=== PATIENT | male | born 1970 | race Caucasian/White ===

== ENCOUNTER 2023-05-23 17:01 | Emergency (ER) | payer OTHER, SELFPAY ==
[2023-05-23 17:10] VITALS: BP 161/110
[2023-05-23 18:54] LABS: % Basophils 0.3 % (0-2); % Eosinophils 0.2 % (0-6); % Immature Granulocytes 0.3 % (0-0.5); % Lymphocytes 9.6 % (20.5-51.1); % Monocytes 6.4 % (1.7-9.3); % Neutrophils 83.2 % (42.2-75.2); Absolute Lymphocytes 0.9 10^3/uL (1.2-3.4); Absolute Monocytes 0.6 10^3/uL (0.1-0.6); Absolute Neutrophils 7.7 10^3/uL (1.4-6.5); Hematocrit 46.5 % (39.0-52.0); Hemoglobin 15.9 g/dL (13.0-18.0); Mean Corp Hgb Conc. 34.2 g/dL (33.0-37.0); Mean Corpuscular Volume 84.9 fL (80.0-94.0); Mean Platelet Volume 10.1 fL (7.4-10.4); Nucleated Red Blood Cells % 0 % (-); Platelet Count 213 10^3/uL (130-400); Red Blood Cell Count 5.48 10^6/uL (4.70-6.10); Red Cell Dist. Width 13.6 % (11.5-14.5); White Blood Cell Count 9.3 10^3/uL (4.8-10.8)
--- NOTE | 2023-05-23 18:54 | ED.GENMED ---
History of Present Illness
General
Chief Complaint: Heart Rate Problem
Source: patient
Exam Limitations: none
Time Seen by Provider: 05/23/23 18:36
Travel History
Have you had any contact with someone who has COVID-19?: No
Do you have any symptoms of coronavirus? Fever > 100 degrees, chills, cough, shortness of breath, sore throat, loss of taste or smell, muscle aches, or headache?: No
History of Present Illness
History of Present Illness:
This is a 53 year old male that comes in with c/o SOB and his heart racing. States that last week he had COVID. States that he got over this and then for 2 days he had some SOB and could feel his heart racing. Then last week he was fine. States that
he took his Testosterone 100mg IM injection last week as he divides his dosage and then yesterday he took the second injection. States that he has trouble sleeping and he felt anxious. States that he has had SOB and a headache. Denies any fever,
chills, chest pain, abd pain, nausea, vomiting, diarrhea, dizziness, urinary burning.
Past History
Past History
ED Past Medical History: HTN, Hypercholesterolemia and [place]
ED Past Surgical History: Cardiac (Stent) and Orthopedic (Right elbow surgery and Right wrist surgery)
Social History
Tobacco: Vaping (Former Smoker, vap's occasionally)
Alcohol: None
Drug: None
Personal: Single
Living: alone
Review of Systems
Review of Systems
All Other Systems: ROS reviewed and negative except as documented in HPI and ROS
Constitutional: Reports no symptoms; Denies fever or chills
EENT: Reports no symptoms
Respiratory: Reports trouble breathing; Denies cough
Cardiac: Reports other (heart racing); Denies chest pain
ABD/GI: Reports no symptoms; Denies abdominal pain, nausea, vomiting or diarrhea
: Reports no symptoms; Denies dysuria, frequency or urgency
Musculoskeletal: Reports no symptoms
Skin: Reports no symptoms
Neurological: Reports headache; Denies dizzy
Psychiatric: Reports no symptoms
Phy Exam
General Physical Exam
General Presentation: well appearing and no apparent distress
General age: appears stated age
General Skin: warm and dry
General Habitus: normal
General Mental: alert
General Hydration: appears well hydrated
ENT Exam
ENT Exam: TM's normal, pharynx normal and neck supple
Eye Exam
Eye Exam: EOMI
Cardiovascular Exam
Cardiovascular Exam: normal peripheral pulses and tachycardia
Pulmonary Exam
Pulmonary Exam: lungs clear, no respiratory distress, no rales, chest non tender, no crackles, no rhonchi, no wheezing and no cough
Gastrointestinal Exam
Gastrointestinal Exam: normal bowel sounds, non tender, soft, no organomegaly, no pulsatile mass, non distended and other (Obese)
Musculoskeletal Exam
Musculoskeletal Exam: full ROM and no edema
Skin Exam
Skin Exam: normal color, warm/dry, no rash and no petechia
Psychiatric Exam
Psychiatric Exam: normal mood/affect
Course
Orders/Labs/Results
Orders:
Orders
05/23/23 17:13
Electrocardiogram (*1) Urgent
Reason for Study: Shortness of Breath
EKG- Treatment ONCE
05/23/23 18:22
Complete Blood Count/With Diff Urgent
Comprehensive Metabolic Panel Urgent
D-Dimer Urgent
Comment: ADD ON
NT-proBNP Urgent
Comment: ADD ON
Prothrombin Time Urgent
Troponin I Urgent
05/23/23 18:54
0.9% Sodium Chloride 500 ml [Nss] 500 ml IV BOLUS
CR Chest - 2 Views Urgent
Comment:
Reason For Exam: SOB
05/23/23 19:07
Add On- LAB Urgent
Tests Added?: D-dimer
05/23/23 19:54
Vital Signs- Treatment ONCE
Frequency: Once
05/23/23 19:58
Add On- LAB Urgent
Tests Added?: Pro-BNP
Abnormal Lab Results
05/23/23
18:22
Absolute Neuts (auto) 7.7 H 10^3/uL
(1.4-6.5)
Absolute Lymphs (auto) 0.9 L 10^3/uL
(1.2-3.4)
Neutrophils % 83.2 H %
(42.2-75.2)
Lymphocytes % 9.6 L %
(20.5-51.1)
Sodium 134 L mmol/L
(135-145)
Glucose 132 H mg/dl
(70-99)
05/23/23 18:22
05/23/23 18:22
Glucose nonfasting. PT 13.6 with INR 1.06, D-dimer <0.27, Troponin <0.012
Vital Signs
Initial and Last Documented VS:
Initial Vital Signs
Temp Pulse Resp BP Pulse Ox
98.3 F 120 20 161/110 96
05/23/23 17:10 05/23/23 17:10 05/23/23 17:10 05/23/23 17:10 05/23/23 17:10
Last Documented Vital Signs
Temp Pulse Resp BP Pulse Ox
98.3 F 106 12 134/95 96
05/23/23 17:10 05/23/23 19:06 05/23/23 19:06 05/23/23 20:00 05/23/23 17:10
MDM/Problems Addressed
Differential Diagnosis Includes:
PE, Dehydration, Reaction to Testosterone
MDM/Problems Addressed:
This is a 53 year old male that comes in with c/o heart racing and SOB. States that he gives himself Testosterone injection and he divided the dosage. State that he has a shot last week and then yesterday. States that he did not sleep well and he
felt anxious. States that he has been SOB.
Will check labs. Chest x-ray and give IV fluids.
Back into see patient. Patient was sleeping about arouses easily. Explained that his HR is not 95 and reviewed labs. Patient states that he is feeling better. Patient has an appointment with the [facility] on June 22. Explained that he can call
them and let them know that he was here and they can review everything and if they feel they need to see him sooner they will make that decision. IF YOU HAVE ANY OTHER CONCERNS PLEASE RETURN TO THE EMERGENCY ROOM.
Chronic conditions affecting care:
NA
Acute Exacerbation and/or Progression of Chronic Illness:
NA
*Radiology
Radiology exam reviewed: preliminary read by ED provider (Chest- Increased vascular congestion) and radiology read reviewed (Chest- No evidence of active cardiopulmonary disease)
*Pulse Oximetry
Patient hypoxic: no
*EKG
Interpreted by ED Provider?: Yes
Heart Rate: 114
Rate: tachycardiac
Rhythm: sinus
[place]: normal axis
Interval: normal interval
QRS Pattern: normal QRS
Ischemia: T-wave inversion (III, aVF, )
*Marketing Assistant [employer] Interpretation
Rate: tachycardiac
Heart Rate: 107
Rhythm: sinus tachycardia
*Critical Care Note
Total Time (30-74mins, 75-104mins- exclusive of procedures): Not Applicable
ED Attending Note
-
Portions of this chart may have been created with voice recognition software.� Occasional wrong word or��sound alike� substitutions may have occurred due to the inherent limitations of voice recognition software.
Discharge Plan
Departure
Patient Disposition: Home (Routine Discharge)
Date of Disposition: 05/23/23
Time of Disposition: 20:36
Patient with high blood pressure during this ER visit?: Yes
Condition: Good
Covid-19: Not Applicable
Discharge Problem:
SOB (shortness of breath), Tachycardia
Instructions: Tachycardia (DC), Shortness of Breath, Adult ED, BLOOD PRESSURE
Prescriptions:
No Action
atorvastatin 40 MG tablet
40 mg PO QPM Qty: 90 3RF
aspirin 81 MG tablet,delayed release (DR/EC)
81 mg PO DAILY Qty: 0 0RF
atenolol 50 mg Tablet
50 mg PO DAILY
buprenorphine-naloxone 8-2 mg tablet, sublingual
1 tab SUBLINGUAL DAILY
testosterone cypionate 200 mg/mL Kit
100 mg IM Q7D
Referrals:
Jay Weaver DO [Family Provider] - Call in 1-3 days for appt
Activity Restrictions/Additional Instructions:
As discussed, your blood work is normal. Your Chest x-ray is normal and a D-dimer which looks for Pulmonary embolism is negative. Please call your [facility] and let them know you were seen in the emergency room. They may wish to see you sooner
for further evaluation. Please increase your water intake to 8-8oz glasses daily. IF YOU HAVE ANY CHEST PAIN, INCREASED OR CHANGING SHORTNESS OF BREATH OR YOU HAVE ANY OTHER CONCERNS PLEASE RETURN TO THE EMERGENCY ROOM.
Interventions
Interventions:
*Risk Screen - Suicide Last Done: 05/23/23 17:10
*General Assessment Last Done: 05/23/23 17:10
*Neglect/Abuse Screening Last Done: 05/23/23 17:10
ED- Fall Risk Assessment Last Done: 05/23/23 17:55
ED- Cardiac Assessment Last Done: 05/23/23 17:55
ED- Pulmonary Assessment Last Done: 05/23/23 17:55
[2023-05-23 19:04] LABS: INR 1.06; PT 13.6 Sec (11.4-14.6)
[2023-05-23 19:06] LABS: ALT (SGPT) 26 U/L (0-50); AST (SGOT) 25 U/L (17-59); Albumin 4.5 g/dl (3.5-5.0); Alkaline Phosphatase 90 U/L (38-126); Blood Urea Nitrogen 17 mg/dl (9-20); Calcium 9.1 mg/dl (8.4-10.2); Carbon Dioxide 26 mmol/L (22-30); Chloride 100 mmol/L (98-107); Glucose 132 mg/dl (70-99); Potassium 4.4 mmol/L (3.5-5.1); Sodium 134 mmol/L (135-145); Total Bilirubin 0.8 mg/dl (0.2-1.3); Total Protein 7.7 g/dl (6.3-8.2); eGFR > 60.00
[2023-05-23 19:16] LABS: Troponin I < 0.012 ng/ml
[2023-05-23 19:19] LABS: D-Dimer 0.27 ug/mlFEU (0.00-0.50)
[2023-05-23] MEDS: NSS 500 IV (19:44)
[2023-05-23 20:00] VITALS: BP 134/95
[2023-05-23 21:18] LABS: NT-proBNP 263 pg/ml
== END 2023-05-23 20:55 | disposition home or self-care (01) ==
LOC: EMR 17:01
PROVIDERS: Emergency Medicine; EMERGENCY PHYSICIAN Emergency Medicine; FAMILY PHYSICIAN Family Medicine
DX: R06.02 Shortness of breath (principal); R00.0 Tachycardia, unspecified; I10 Essential (primary) hypertension; E78.00 Pure hypercholesterolemia, unspecified; I25.2 Old myocardial infarction; Z87.891 Personal history of nicotine dependence; Z95.5 Presence of coronary angioplasty implant and graft
CPT/HCPCS: 99283; 71046; 80053; 83880; 84484; 85025; 85379; 85610; 93005

== ENCOUNTER 2023-11-05 02:51 | Emergency (ER) | payer OTHER, SELFPAY ==
[2023-11-05 03:06] VITALS: BP 157/90
[2023-11-05 03:19] VITALS: BP 158/88
--- NOTE | 2023-11-05 03:28 | ED.GENMED ---
History of Present Illness
General
Chief Complaint: Heart Rate Problem
Source: patient
Time Seen by Provider: 11/05/23 03:20
History of Present Illness
History of Present Illness:
53-year-old gentleman presents to the emergency room complaining of palpitations and chest discomfort. Patient states he feels a on again off again type of tightness in his chest and neck. It seems to be occurring with the palpitations. He feels
like his heart sometimes 'skips a beat'. Patient does not have any shortness of breath with exertion. He does not have chest pain with exertion. He has had stents placed. He has not seen his field radio operator in about 5 years. Patient recently
stopped taking his prescribed medication and turned towards herbal type remedies. Patient did request a refill of his medications which should be available tomorrow
Past History
Past History
ED Past Medical History: HTN, Hypercholesterolemia and [place]
ED Past Surgical History: Cardiac (Stent) and Orthopedic (Right elbow surgery and Right wrist surgery)
Social History
Tobacco: Vaping (Former Smoker, vap's occasionally)
Alcohol: None
Drug: None
Personal: Single
Living: alone
Phy Exam
Physical Exam
Physical Exam:
General: Awake, Alert, Oriented X3. No acute distress.
Vitals: unremarkable
Head: Atraumatic
Eyes: Pupils equal, EOMI
Throat: Airway intact, no exudates
Neck: Trachea midline
Lungs: Clear and equal b/l
Heart: Regular rate occasional ectopy, no murmurs
Abd: Soft, Nontender, No pulsatile mass
Neuro: Nonfocal
Skin: Warm, dry, no rash
Extremities: pulses equal b/l, trace edema
Course
Orders/Labs/Results
Orders:
Orders
11/05/23 03:00
Electrocardiogram (*1) Urgent
Reason for Study: Other
Other Reason for Exam: Respiratory Distress
Cardiac Monitoring- Treatment ONCE
EKG- Treatment ONCE
IV Insert/Care/Rem.- Treatment PRN
CR Chest - 2 Views Urgent
Comment:
Reason For Exam: respiratory distress
O2 Therapy [RESP] Urgent
Titrate/Wean O2 to maintain O2 sat greater than (%): 93
Special Instructions: TO MAINTAIN CONTINUOUS O2 SATS >/= 93%
Pulse Ox/cont/shift [RESP] Urgent
Quantity: 1
Special Instructions: continuous pulse ox
11/05/23 03:39
Complete Blood Count/With Diff Urgent
Comprehensive Metabolic Panel Urgent
Troponin I Urgent
Abnormal Lab Results
11/05/23
03:39
Absolute Neuts (auto) 6.8 H 10^3/uL
(1.4-6.5)
Absolute Monos (auto) 1.0 H 10^3/uL
(0.1-0.6)
Lymphocytes % 14.7 L %
(20.5-51.1)
Monocytes % 10.7 H %
(1.7-9.3)
Glucose 106 H mg/dl
(70-99)
11/05/23 03:39
11/05/23 03:39
Vital Signs
Initial and Last Documented VS:
Initial Vital Signs
Temp Pulse Resp BP Pulse Ox
98.3 F 80 20 157/90 94
11/05/23 03:06 11/05/23 03:06 11/05/23 03:06 11/05/23 03:06 11/05/23 03:06
Last Documented Vital Signs
Temp Pulse Resp BP Pulse Ox
98.3 F 67 12 147/80 95
11/05/23 03:06 11/05/23 05:05 11/05/23 05:05 11/05/23 05:05 11/05/23 05:05
MDM/Problems Addressed
Differential Diagnosis Includes:
Angina, PACs, PVCs, other dysrhythmia
MDM/Problems Addressed:
Patient presents with chest discomfort palpitations. Work appears unremarkable. EKG shows some PVCs but no acute ischemic changes. Troponin is negative. Chest x-ray shows no acute abnormality. Patient stable for discharge and outpatient
follow-up
*Radiology
Radiology exam reviewed: preliminary read by ED provider (No acute disease)
*Pulse Oximetry
Patient hypoxic: no
*EKG
Interpreted by ED Provider?: Yes
Interpretation: normal
Heart Rate: 71
Rate: normal
Rhythm: sinus and PVC's
[place]: normal axis
Interval: normal interval
QRS Pattern: normal QRS
Ischemia: non-specific ST changes
*Office Inspector Interpretation
Rate: normal
Interpretation: abnormal
Rhythm: sinus and PVC's
*Critical Care Note
Total Time (30-74mins, 75-104mins- exclusive of procedures): Not Applicable
ED Attending Note
-
Portions of this chart may have been created with voice recognition software.� Occasional wrong word or��sound alike� substitutions may have occurred due to the inherent limitations of voice recognition software.
Discharge Plan
Departure
Patient Disposition: Home (Routine Discharge)
Date of Disposition: 11/05/23
Time of Disposition: 04:30
Patient with high blood pressure during this ER visit?: Yes
Discharge Problem:
Palpitations
Instructions: Palpitations (DC)
Prescriptions:
No Action
atorvastatin 40 MG tablet
40 mg PO QPM Qty: 90 3RF
aspirin 81 MG tablet,delayed release (DR/EC)
81 mg PO DAILY Qty: 0 0RF
atenolol 50 mg Tablet
50 mg PO DAILY
buprenorphine-naloxone 8-2 mg tablet, sublingual
1 tab SUBLINGUAL DAILY
testosterone cypionate 200 mg/mL Kit
100 mg IM Q7D
Referrals:
Jay Weaver DO [Family Provider] -
Interventions
Interventions:
*Risk Screen - Suicide Last Done: 11/05/23 04:45
*General Assessment Last Done: 11/05/23 04:45
*Neglect/Abuse Screening Last Done: 11/05/23 05:00
ED- Fall Risk Assessment Last Done: 11/05/23 05:04
*ED COVID-19 Vaccine History Last Done: 11/05/23 05:00
*Nursing Disposition Last Done: 11/05/23 05:05
ED- Cardiac Assessment Last Done: 11/05/23 04:10
ED- Pulmonary Assessment Last Done: 11/05/23 04:10
Discharge Date and Time
Discharge Date/Time: 11/05/23 05:10
Print Language: SAO TOMEAN
[2023-11-05 03:59] LABS: % Basophils 0.2 % (0-2); % Eosinophils 0.8 % (0-6); % Immature Granulocytes 0.3 % (0-0.5); % Lymphocytes 14.7 % (20.5-51.1); % Monocytes 10.7 % (1.7-9.3); % Neutrophils 73.3 % (42.2-75.2); Absolute Eosinophils 0.1 10^3/uL (0-0.7); Absolute Lymphocytes 1.4 10^3/uL (1.2-3.4); Absolute Neutrophils 6.8 10^3/uL (1.4-6.5); Hematocrit 44.7 % (39.0-52.0); Hemoglobin 15.2 g/dL (13.0-18.0); Mean Corpuscular Hgb 29.8 pg (27.0-31.0); Mean Corpuscular Volume 87.6 fL (80.0-94.0); Mean Platelet Volume 10.2 fL (7.4-10.4); Nucleated Red Blood Cells % 0 % (-); Platelet Count 196 10^3/uL (130-400); Red Cell Dist. Width 13.6 % (11.5-14.5); White Blood Cell Count 9.3 10^3/uL (4.8-10.8)
[2023-11-05 04:10] LABS: ALT (SGPT) 23 U/L (0-50); AST (SGOT) 24 U/L (17-59); Albumin 4.4 g/dl (3.5-5.0); Alkaline Phosphatase 91 U/L (38-126); Blood Urea Nitrogen 20 mg/dl (9-20); Calcium 9.3 mg/dl (8.4-10.2); Carbon Dioxide 25 mmol/L (22-30); Chloride 102 mmol/L (98-107); Glucose 106 mg/dl (70-99); Potassium 4.4 mmol/L (3.5-5.1); Sodium 137 mmol/L (135-145); Total Bilirubin 0.8 mg/dl (0.2-1.3); Total Protein 7.4 g/dl (6.3-8.2); eGFR > 60.00
[2023-11-05 04:22] LABS: Troponin I < 0.012 ng/ml
[2023-11-05 04:26] VITALS: BP 147/80
[2023-11-05 05:05] VITALS: BP 147/80
== END 2023-11-05 05:10 | disposition home or self-care (01) ==
LOC: EMR 02:51
PROVIDERS: EMERGENCY PHYSICIAN Emergency Medicine; FAMILY PHYSICIAN Family Medicine
DX: R00.2 Palpitations (principal); I10 Essential (primary) hypertension; Z87.891 Personal history of nicotine dependence
CPT/HCPCS: 99285; 71046; 80053; 84484; 85025; 93005